=== PATIENT | male | born 1930 | race Two or more races ===

== ENCOUNTER 2022-09-18 16:38 | Emergency (ER) | payer MEDICARE, OTHER ==
[~2022-09-18] VITALS: Ht 170.2 cm; Wt 81.6 kg
--- NOTE | 2022-09-18 17:00 | NUR ---
PATIENT TAKEN TO CT VIA [facility]
[2022-09-18 18:48] VITALS: BP 155/82
== END 2022-09-18 18:49 | disposition home or self-care (01) ==
LOC: ER 16:41
DX: S01.01XA Laceration without foreign body of scalp, initial encounter (principal); S90.512A Abrasion, left ankle, initial encounter; I10 Essential (primary) hypertension; E11.9 Type 2 diabetes mellitus without complications; M54.2 Cervicalgia; W10.0XXA Fall (on)(from) escalator, initial encounter; Y93.89 Activity, other specified; Y92.89 Other specified places as the place of occurrence of the external cause; Y99.8 Other external cause status
CPT/HCPCS: 99284; 72125; 12005; 73610; 70450; A6403